=== PATIENT | female | born 1980 | race Asian ===

== ENCOUNTER 2021-02-10 22:04 | Emergency (ER) | payer BC, OTHER ==
[~2021-02-10] VITALS: Ht 160 cm; Wt 75.0 kg
[2021-02-10 22:10] VITALS: BP 125/61
[2021-02-10] MEDS ORDERED: PRENATAL VIT (22:15)
[2021-02-10 22:47] LABS: HCG UR SG 1.016 (1.003-1.030); MICROSCOPIC AUTO
[2021-02-10 23:25] LABS: BASOPHILS % (AUTO) 1 % (0-1); EOSINOPHILS % (AUTO) 2 % (1-7); LYMPHOCYTES % (AUTO) 26 % (22-44); MEAN CORPUSCULAR HEMOGLOBIN 31.3 pg (27.0-34.8); MEAN CORPUSCULAR HGB CONC 33.8 g/dL (32.4-35.8); MEAN PLATELET VOLUME 7.6 fL (7.4-10.4); MONOCYTES % (AUTO) 5 % (2-9); NEUTROPHILS % (AUTO) 67 % (42-75); PLATELET COUNT 322 x10^3/uL (130-400); RED BLOOD COUNT 4.34 x10^6/uL (3.82-5.3); RED CELL DISTRIBUTION WIDTH 13.1 % (9.6-15.2)
[2021-02-10 23:26] LABS: MD NO
[2021-02-10] MEDS ORDERED: ACETAMINOPHEN 500 MG TABLET PO ONE (23:30)
[2021-02-10 23:38] LABS: ALANINE AMINOTRANSFERASE 22 U/L (12-78); ANION GAP 5 mmol/L (5-15); CALCIUM 9.8 mg/dL (8.5-10.1); CHLORIDE 104 mmol/L (98-107); CREATININE 0.73 mg/dL (0.55-1.02)
[2021-02-10 23:42] LABS: ALKALINE PHOSPHATASE 71 U/L (45-117); BILIRUBIN,TOTAL 0.3 mg/dL (0.2-1.0); TOTAL PROTEIN 8.3 g/dL (6.4-8.2)
[2021-02-10] MEDS ORDERED: ACETAMINOPHEN 500 MG TABLET ONE (23:43)
--- NOTE | 2021-02-10 23:46 | NUR ---
PT MEDICATED PER MAR TOLERATED WELL CONNECTED TO PULSE OX AT THIS TIME DOES NOT WANT BP PLACED.
--- NOTE | 2021-02-10 23:47 | NUR ---
PT TO CT
[2021-02-11] MEDS ORDERED: CEFTRIAXONE 1,000 MG ONE (00:50)
--- NOTE | 2021-02-11 00:59 | NUR ---
Patient/Caregiver given discharge instructions and they have confirmed that they understand the instructions. Patient ambulatory with steady gait.
[2021-02-11] MEDS ORDERED: CEFTRIAXONE 1,000 MG IM ONE (01:00)
[2021-02-11] MEDS ORDERED: CEFDINIR 300 MG CAPSULE PO ONE (01:00)
== END 2021-02-11 01:03 | disposition home or self-care (01) ==
LOC: ED 22:42
DX: N10 Acute pyelonephritis (principal); R10.9 Unspecified abdominal pain; R31.9 Hematuria, unspecified
CPT/HCPCS: 36415; 74176; 80053; 81001; 81025; 84703; 85025; 87077; 87086; 87186; 96372; 99284; J0696